=== PATIENT | female | born 1940 | race American Indian/Alaskan Native ===

== ENCOUNTER 2017-09-12 12:33 | Emergency (ER) | payer MEDICARE ==
[2017-09-12 12:33] VITALS: BMI 26.6
[2017-09-12 12:45] VITALS: BP 164/74; PULSE 82; RESP 20; TEMP 97.4; O2SAT 100
[2017-09-12 13:56] LABS: BASO # 0.1 K/uL (0.0-0.2); BASO % 0.7 % (0.0-2.0); EOS % 0.3 % (0.0-4.0); HEMOGLOBIN 11.5 g/dL (11.0-16.0); LYMPH # 0.9 K/uL (1.0-4.3); LYMPH % 9.2 % (20.0-40.0); MEAN CELL VOLUME 84.7 fL (81.0-99.0); MEAN CORPUSCULAR HEMOGLOBIN 28.5 pg (27.0-31.0); MEAN CORPUSCULAR HGB CONC 33.6 g/dL (33.0-37.0); MEAN PLATELET VOLUME 9.5 fL (7.2-11.7); MONO # 0.3 K/uL (0.0-0.8); MONO % 2.8 % (0.0-10.0); NEUT # 8.2 K/uL (1.8-7.0); PLATELET COUNT 261 K/uL (130-400); RBC 4.05 Mil/uL (3.80-5.20); RED CELL DISTRIBUTION WIDTH 15.7 % (11.5-14.5); WHITE BLOOD COUNT 9.4 K/uL (4.8-10.8)
[2017-09-12 14:03] LABS: ALBUMIN 4.5 g/dL (3.5-5.0); ALT/SGPT 13 U/L (9-52); AST/SGOT 22 U/L (14-36); BLOOD UREA NITROGEN 17 mg/dL (7-17); CALCIUM 9.9 mg/dl (8.6-10.4); GFR AFRICAN-AMERICAN > 60; GFR NON-AFRICAN AMERICAN 54
--- NOTE | 2017-09-12 14:51 | C.PDOC ---
History Of Present Illness Pt took her prescribe Tamadol last night and again this morning. She then started feeling drowsy, palpitations and nausea. Time Seen by Provider: 09/12/17 13:14 Chief Complaint (Nursing): Palpitations History Per: Patient, Family Onset/Duration Of Symptoms: Hrs Current Symptoms Are (Timing): Still Present Associated Symptoms: Dizziness, Other (Nausea) Severity: Moderate Exacerbating Factor(s): Pos: Recent Change In Medication Additional History Per: Prior Records Past Medical History Reviewed: Historical Data, Nursing Documentation, Vital Signs Vital Signs: Last Vital Signs Temp 97.4 F L 09/12/17 12:39 Pulse 82 09/12/17 12:39 Resp 20 09/12/17 12:39 BP 164/74 H 09/12/17 12:39 Pulse Ox 100 09/12/17 12:39 - Medical History PMH: CHF, HTN, Hypercholesterolemia, Hyperlipidemia - [facility] Procedures COLONOSCOPY (09/10/14) INJECT/INFUSE NEC (01/20/14) Family History: States: Diabetes, Hypertension - Social History Hx Tobacco Use: No Hx Alcohol Use: No Hx Substance Use: No - Immunization History Hx Tetanus Toxoid Vaccination: Yes Hx Influenza Vaccination: Yes Hx Pneumococcal Vaccination: Yes Review Of Systems Except As Marked, All Systems Reviewed And Found Negative. Constitutional: Positive for: Malaise. Negative for: Fever Cardiovascular: Positive for: Palpitations, Light Headedness. Negative for: Chest Pain Respiratory: Negative for: Shortness of Breath, Hemoptysis Gastrointestinal: Positive for: Nausea. Negative for: Vomiting, Abdominal Pain , Diarrhea Genitourinary: Negative for: Dysuria Musculoskeletal: Negative for: Neck Pain, Back Pain Skin: Negative for: Rash Neurological: Negative for: Weakness, Numbness, Seizures, Headache Physical Exam - Physical Exam Appears: Non-toxic, No Acute Distress Skin: Normal Color, Warm, Dry, No Rash Head: Atraumatic, Normacephalic Eye(s): bilateral: PERRL, EOMI Neck: Normal ROM, Supple Cardiovascular: Rhythm Regular Respiratory: Normal Breath Sounds, No Accessory Muscle Use Gastrointestinal/Abdominal: Soft, No Tenderness Back: No CVA Tenderness Extremity: Normal ROM Neurological/Psych: Oriented x3, Normal Speech, Normal Cognition, Normal Motor, Normal Sensation ED Course And Treatment - Laboratory Results Result Diagrams: 09/12/17 13:42 09/12/17 13:42 Lab Interpretation: No Acute Changes ECG: Interpreted By Me, Viewed By Me ECG Rhythm: Sinus Rhythm, Nonspecific Changes ECG Interpretation: No Acute Changes Rate From EC O2 Sat by Pulse Oximetry: 100 Pulse Ox Interpretation: Normal Progress - Interventions Interventions:: Observation - Medications Administered Intravenous: Antiemetic - Data Reviewed Data Reviewed: Lab, EKG, Old records - Patient Status Patient status: Mostly improved - Continuity of Care Discussed patient case with:: Patient, Family-HIPPA compliant, ED Nurse - Patient Plan Patient Plan: Discharge, F/U with PCP Disposition Counseled Patient/Family Regarding: Studies Performed, Diagnosis, Need For Followup - Disposition Referrals: Marisol Thomas MD [Medical Doctor] - Disposition: HOME/ ROUTINE Disposition Time: 14:52 Condition: IMPROVED Additional Instructions: Follow up with your doctor. Return to the ER if you develop worsening of symptoms or if you have any other concerns. Instructions: Adverse Drug Reactions, Adult (DC) Forms: [facility] ([place]ian) - Clinical Impression Clinical Impression: Adverse reaction to narcotic drug
[2017-09-12 15:08] LABS: ANISOCYTOSIS SLIGHT; BANDS 1 % (0-2); LYMPHOCYTE 9 % (20-40); MONOCYTE 5 % (0-10); NEUTROPHIL 85 % (50-75); PLATELET ESTIMATE NORMAL (NORMAL); TOTAL CELLS COUNTED 100
[2017-09-12 15:09] LABS: OVALOCYTES SLIGHT
--- NOTE | 2017-09-14 02:10 | CARD ---
APPROVED REPORT EKG Measurement Heart [id number] <Conclusion> Normal sinus rhythm Normal ECG
== END 2017-09-12 15:00 | disposition home or self-care (01) ==
LOC: C.ER 12:33
DX: T88.7XXA Unspecified adverse effect of drug or medicament, initial encounter (principal); T50.995A Adverse effect of other drugs, medicaments and biological substances, initial encounter; Y92.89 Other specified places as the place of occurrence of the external cause
CPT/HCPCS: 80053; 82948; 83735; 84484; 85025; 93005; 96374; 99285; J2405

== ENCOUNTER 2018-08-16 09:00 | Outpatient (CLI) | payer MEDICARE | END 2018-08-16 09:01 | disposition home or self-care (01) | LOC: C.LAB 09:00 | DX: K86.2 Cyst of pancreas (principal) ==

== ENCOUNTER 2018-08-27 10:19 | Outpatient (CLI) | payer MEDICARE | END 2018-08-27 10:20 | disposition home or self-care (01) | LOC: C.MRIC 10:19 | DX: K86.2 Cyst of pancreas (principal) ==

== ENCOUNTER 2018-10-25 08:33 | Outpatient (CLI) | payer MEDICARE | END 2018-10-25 08:34 | disposition home or self-care (01) | LOC: C.RT 08:33 ==